=== PATIENT | male | born 1995 | race Two or more races ===

== ENCOUNTER → 2016-04-14 | Outpatient (CLI) | payer OTHER ==
[~2016-04-14] MED LIST: CEFP250T PO; MUCI60TA12 PO; OXYC1TAB23 PO
[2016-04-14 07:12] LABS: BASO # 0.1 K/mm3 (0.0-0.2); BASO % 0.8 % (0.0-1.0); EOS # 0.2 K/mm3 (0.0-0.50); EOS % 2.3 % (0.0-3.0); LARGE UNSTAINED CELL # 0.2 K/mm3 (0.0-0.4); LARGE UNSTAINED CELL % 2.7 % (0.0-4.0); LYMPH # 2.3 K/mm3 (1.5-6.5); LYMPH % 25.1 % (24.0-44.0); MEAN CORPUSCULAR HEMOGLOBIN 28.9 pg (27.0-33.0); MEAN CORPUSCULAR HGB CONC 34.1 g/dl (32.0-36.5); MEAN CORPUSCULAR VOLUME 84.7 fl (80.0-96.0); MONO # 0.6 K/mm3 (0.0-0.8); MONO % 7.1 % (0.0-5.0); NEUTROPHILS # 5.1 K/mm3 (1.8-7.7); PLATELET COUNT, AUTOMATED 173 k/mm3 (150-450); RED CELL DISTRIBUTION WIDTH 13.6 % (11.5-14.5); WHITE BLOOD COUNT 8.2 K/mm3 (4.0-10.0)
[2016-04-14 07:41] LABS: INR 1.02
[2016-04-14 08:17] LABS: MICROSCOPIC INDICATED? MAN YES (NO)
[2016-04-14 08:24] LABS: BACTERIA, URINE NONE SEEN; HYALINE CAST, URINE NONE SEEN /lpf (0-1); MICROSCOPIC EXAM PERFORMED; RBC, URINE 0-1 /hpf (0-3); SQUAMOUS EPITHELIAL CELL URINE NONE SEEN /hpf (SMALL AMT); WBC, URINE NONE SEEN /hpf (0-3)
== END | disposition home or self-care (01) ==
LOC: M LAB 06:41
DX: J34.2 Deviated nasal septum (principal)

== ENCOUNTER → 2016-04-16 | Day surgery (SDC) | payer OTHER ==
[~2016-04-16] VITALS: Ht 167.6 cm; Wt 81.6 kg
[~2016-04-16] MED LIST changes: +BACITRACIN OINT 30GM As Ordered ONE; +BACITRACIN OINT 30GM TOP ONE; +CEFPROZIL 250 MG/5 ML PO SCH; +COCAINE 4% TOP SOLN 4 ML VIAL As Ordered ONE; +COCAINE 4% TOP SOLN 4 ML VIAL TOP ONE; +HYDROmorphone HCL 2 MG/ML 1ML VIAL (J1170) As Ordered ONE; +LIDOCAINE W/EPINEPHRINE 1% 20ML VIAL As Ordered ONE; +LIDOCAINE W/EPINEPHRINE 1% 20ML VIAL SC ONE; +LR 1,000 ML IV SCH; +METHYLENE BLUE 1% 10 ML VIAL (Q9968) As Ordered ONE; +METOCLOPRAMIDE INJ 10MG/2ML VIAL (J2765) As Ordered ONE; +MIDAZOLAM INJ 2 MG/2 ML VIAL (J2250) As Ordered ONE; +NORCO, ANEXSIA 5/325MG TABLET (HYDROcodone/ACETAMINOPHEN) PO PRN; +ONDANSETRON 4MG/2ML VIAL (J2405) As Ordered ONE; +ONDANSETRON 4MG/2ML VIAL (J2405) IV PRN; +PERCOCET 5MG/325MG TAB As Ordered ONE; +PROPOFOL 500 MG/50 ML VIAL As Ordered ONE; +PSEUDOEPHEDRINE 60 MG TAB PO SCH; +ROCURONIUM BROMIDE 50 MG/5 ML VIAL As Ordered ONE; +ceFAZolin 1GM INJ (J0690) As Ordered ONE; +dexameTHASONE 4 MG/ML 1ML VIAL (J1100) As Ordered ONE; +fentaNYL 100 MCG/2 ML INJECTION (J3010) As Ordered ONE; +fentaNYL 100 MCG/2 ML INJECTION (J3010) IV PRN; +guaiFENesin ER 600 MG TAB PO SCH
[2016-04-16] MEDS: PERCOCET 5MG/325MG TAB PO PRN ×2 (09:20→09:40)
[2016-04-16 12:25] VITALS: BP 137/73
--- NOTE | 2016-04-17 09:34 | RO ---
DATE OF SURGERY: 04/16/2016 PREOPERATIVE DIAGNOSIS: Nasal fracture with deviated nasal septum. POSTOPERATIVE DIAGNOSIS: Nasal fracture with deviated nasal septum. OPERATIVE PROCEDURE: Septoplasty and closed reduction of nasal bones. SURGEON: Dr. Rao Olson BUSH REGENERATOR: ANESTHESIA: DESCRIPTION OF PROCEDURE: The patient was moved to the operating room table in a supine position after the induction of general anesthesia and placement of endotracheal tube. The nose was packed with cottonoids impregnated with 4% cocaine solution. These were left in place while the patient was prepped and draped in appropriate manner for nasal surgery. The hairs were trimmed from the nasal vestibule. The cottonoids were removed from the nose. The caudal end of the cartilaginous septum was then infiltrated with 1% Xylocaine with epinephrine 1:100,000. A total of 4 mL was used. A right hemitransfixion incision was then made using a scalpel. Then, using a Attala knife, a right anterior tunnel was initiated. Using a Attala elevator, a right anterior tunnel was developed. This was carried back onto the bony septum, and a right posterior tunnel was developed. The cartilaginous septum was from the bony septum, and a left posterior tunnel was developed. Fractured fragments of the cartilaginous septum were then removed using a Cecilio elevator and Jai forceps. The junction of the cartilaginous bony septum was then trimmed using Carol compound bone rongeur. This allowed the septum to return to the midline under no tension. The bony septum, which was deviated to the right, was then mobilized towards the left, bringing it back to the midline. Then, using a nasal bone elevator, the nasal bones were elevated into normal position. The hemitransfixion incision was then closed using interrupted sutures of 4-0 chromic. The nose was packed with half-inch Vaseline packing impregnated with antibiotic ointment. A thermal acrylic splint was applied to the external nose, and a moustache dressing was applied, and the procedure was terminated. The patient tolerated the procedure well and left the operating room in good condition. Sponge and needle counts were correct. Estimated blood loss for the procedure was 5 mL.
== END ==
LOC: M SDC 06:10
DX: S02.2XXA Fracture of nasal bones, initial encounter for closed fracture (principal); J34.2 Deviated nasal septum; X58.XXXA Exposure to other specified factors, initial encounter; Y92.89 Other specified places as the place of occurrence of the external cause; Y93.89 Activity, other specified; Y99.8 Other external cause status
CPT/HCPCS: 30520; 88300; J0690; J1100; J1170; J2250; J2405; J2765; J3010